=== PATIENT | female | born 1985 | race Caucasian/White ===

== ENCOUNTER 2016-12-28 11:07 | Observation (INO) | payer MEDICAID, OTHER ==
[2016-12-28] MEDS ORDERED: Haloperidol Lactate 5 MG/ML SDV IM ONE (12:16)
[2016-12-28] MEDS ORDERED: LORazepam 2 MG/ML MDV IM PRN (12:17)
[2016-12-28 12:48] LABS: ACETAMINOPHEN < 10 ug/mL (10-30)
--- NOTE | 2016-12-28 12:54 | EDM.PDOCBH ---
ED HPI GENERAL MEDICAL PROBLEM - General Chief Complaint: Drug or Alcohol Abuse Stated Complaint: 72 HOUR HOLD Time Seen by Provider: 12/28/16 11:07 Source of Information: Reports: Patient, Police History Limitations: Reports: No Limitations - History of Present Illness INITIAL COMMENTS - FREE TEXT/NARRATIVE: c/o paranoia and psychosis pt used meth and THC yesterday, walk to special police house at 7 AM and asked for a police uniform and police car sot hat she could go to [facility], went to a relative in [place] and asked for a car to go to [facility] which was declined, walked half a block and was under a vehicle and reported to be trying to get in , went back to relative who again declined to loan a car, then was found in the middle of [facility] at ~10:45 AM running around and saluting cars police brought her here, has been restless, pacing in and out of room, paranoid , took off a bandaid and wanted to stick it on staff and special police because "that is what she does with her children" has 3 children not working at least 7 previous psych admissions - Related Data Allergies Allergy/AdvReac Type Severity Reaction Status Date / Time Unable to Assess Allergy Unverified 12/28/16 12:01 Home Meds: Home Meds . [Unable to Verify Home Med List] 12/28/16 [History] ED ROS GENERAL - Review of Systems Review Of Systems: See Below Constitutional: Reports: No Symptoms HEENT: Reports: No Symptoms Respiratory: Reports: No Symptoms Cardiovascular: Reports: No Symptoms Endocrine: Reports: No Symptoms GI/Abdominal: Reports: No Symptoms : Reports: No Symptoms Musculoskeletal: Reports: No Symptoms Skin: Reports: No Symptoms Neurological: Reports: No Symptoms Psychiatric: Reports: Agitation, Anxiety Hematologic/Lymphatic: Reports: No Symptoms Immunologic: Reports: No Symptoms ED EXAM, BEHAVIORAL HEALTH - Physical Exam Exam: See Below Exam Limited By: Altered Mental Status General Appearance: Alert, Moderate Distress Eye Exam: Bilateral Eye: EOMI, PERRL Ears: Normal External Exam Nose: Normal Inspection, Normal Mucosa, No Blood Throat/Mouth: Normal Oropharynx, Normal Voice, No Airway Compromise, Other ( multiple missing teeth, poor dentition) Head: Atraumatic, Normocephalic Neck: Normal Inspection, Supple, Non-Tender, Full Range of Motion Respiratory/Chest: No Respiratory Distress, Lungs Clear, Normal Breath Sounds, No Accessory Muscle Use, Chest Non-Tender Cardiovascular: Regular Rate, Rhythm, No Edema, No Gallop, No Rub, Other (2/6 ABE at LSB) GI/Abdominal: Soft, Non-Tender Back Exam: Normal Inspection, Full Range of Motion, NT Extremities: Normal Inspection, Normal Range of Motion, Non-Tender, No Pedal Edema Neurological: Alert, CN II-XII Intact, No Motor/Sensory Deficits Psychiatric: Restless, Agitated, Flight of Ideas, Tangential Thoughts, Paranoid Thoughts, Other (restless, pacing, did lay on bed after Haldol, played with her hands, irrational thought content, unsafe, required police presence for 2 hours , tried to trash the room at one point and had to be restrained by police) Skin Exam: Warm, Dry, Intact, Normal color, No rash COURSE, BEHAVIORAL HEALTH COMP - Course Orders, Labs, Meds: Active Orders 24 hr Category Date Time Status CBC WITH AUTO DIFF [HEME] Stat Lab 12/28/16 11:31 Ordered DRUG SCREEN, URINE ALERE [URCHEM] Stat Lab 12/28/16 11:31 Uncollected TSH ULTRASENSITIVE [CHEM] Stat Lab 12/28/16 11:31 Ordered URINALYSIS W/MICROSCOPIC [UA W/MICROSCOPIC] [URIN] Stat Lab 12/28/16 11:35 Uncollected Laboratory Tests 12/28/16 12/28/16 Range/Units 11:50 11:50 Sodium 135 (135-145) mmol/L Potassium 3.9 (3.5-5.3) mmol/L Chloride 104 (100-110) mmol/L Carbon Dioxide 26 (23-29) mmol/L BUN 19 (5-20) mg/dL Creatinine 0.7 (0.6-1.3) mg/dL Est Cr Clr Drug Dosing TNP Estimated GFR (MDRD) > 60 (>60) BUN/Creatinine Ratio 27.1 H (9-20) Glucose 98 (80-116) mg/dL Calcium 9.3 (8.6-10.2) mg/dL Total Bilirubin 0.4 (0.1-1.3) mg/dL AST 18 (5-27) IU/L ALT 17 (14-26) IU/L Alkaline Phosphatase 73 (56-112) IU/L Total Protein 7.7 (6.0-8.0) g/dL Albumin 4.2 (3.5-5.2) g/dL Globulin 3.5 g/dL Albumin/Globulin Ratio 1.2 Salicylates < 4.0 L (5.0-25.0) mg/dL Acetaminophen < 10 L (10-30) ug/mL Ethyl Alcohol < 0.01 (<0.01) % Medications Discontinued Medications Generic Name Dose Route Start Last Admin Trade Name Freq PRN Reason Stop Dose Admin Haloperidol Lactate 5 mg 12/28/16 12:16 12/28/16 12:35 Haldol IM 12/28/16 12:17 5 mg ONETIME ONE Administration Lorazepam 1 mg 12/28/16 12:17 Ativan IM ONETIME PRN Agitation Lorazepam 2 mg 12/28/16 12:55 Ativan IM 12/28/16 12:56 ONETIME ONE Re-Assessment/Re-Exam: pt [place] two outstanding warrants ([place] & [place]), she was arrested for the [place] warrant several days ago and is now on probation call to multiple psych facilities, no beds available, pt not a safe d/c, has been given Haldol 5 mg IM, no Ativan given at this juncture will sign out to Dr José at 17:00 at change of shift Departure - Departure Time of Disposition: 19:00 Disposition: Still A Patient 30 Condition: Fair Clinical Impression: Acute psychosis, Paranoia, Methamphetamine abuse, Marijuana abuse - Discharge Information Referrals: PCP,Unknown [Ordering Only Provider] - Forms: ED Department Discharge - My Orders Last 24 Hours: My Active Orders 12/28/16 11:31 CBC WITH AUTO DIFF [HEME] Stat DRUG SCREEN, URINE ALERE [URCHEM] Stat TSH ULTRASENSITIVE [CHEM] Stat 12/28/16 11:35 URINALYSIS W/MICROSCOPIC [UA W/MICROSCOPIC] [URIN] Stat - Assessment/Plan Last 24 Hours: My Active Orders 12/28/16 11:31 CBC WITH AUTO DIFF [HEME] Stat DRUG SCREEN, URINE ALERE [URCHEM] Stat TSH ULTRASENSITIVE [CHEM] Stat 12/28/16 11:35 URINALYSIS W/MICROSCOPIC [UA W/MICROSCOPIC] [URIN] Stat
[2016-12-28] MEDS ORDERED: LORazepam 2 MG/ML MDV IM ONE (12:55)
[2016-12-28] MEDS ORDERED: LORazepam 2 MG/ML MDV IVPUSH PRN (20:17)
[2016-12-29] MEDS ORDERED: Haloperidol Lactate 5 MG/ML SDV IM ONE (01:35)
[2016-12-29] MEDS ORDERED: Haloperidol Lactate 5 MG/ML SDV IM PRN (07:45)
--- NOTE | 2016-12-29 07:55 | PCM.HP ---
H&P History of Present Illness - General Date of Service: 12/29/16 Admit Problem/Dx: Admission Diagnosis/Problem Admission Diagnosis/Problem Acute psychosis Source of Information: EMS Notes Reviewed, Family, Old Records History Limitations: Reports: Altered Mental Status, Uncooperative - History of Present Illness Initial Comments - Free Text/Narative: 31-year-old female brought in by law enforcement emergency room last night. She was apparently on the [address] [place] to hitch a ride. She was acting psychotic, disoriented and confused. The police I spoke with mentioned that she' s had these episodes in the last few weeks where neighbors, friends and family have called law enforcement concerned because of a acting confused and psychotic , which they believe is caused by drug abuse and or depression. She is apparently a methamphetamine user and also marijuana abuse. She denies alcohol use. She complains of no suicidal ideation or plan ;however she's had multiple visits to the emergency room for Psychosis. She has a h/o chronic migraine headaches, chronic neck pain that apparently stable. On average, she injects 2- 3 times a week. She is homeless, and jobless, according to family members. Unable to obtain further history because of her clinical status. - Related Data Allergies/Adverse Reactions: Allergies Allergy/AdvReac Type Severity Reaction Status Date / Time No Known Allergies Allergy Verified 12/28/16 19:47 Home Medications: Home Meds NK [No Known Home Meds] 12/28/16 [History] Past Medical History [employer] History: Reports: Psychiatric History: Reports: Addiction, Hallucinations, Psychosis, Suicidal Ideation - Infectious Disease History Infectious Disease History: Reports: Chicken Pox Social & Family History - Family History Family Medical History: Noncontributory - Tobacco Use Smoking Status *Q: Current Every Day Smoker Years of Tobacco use: 15 Packs/Tins Daily: 0.5 - Caffeine Use Caffeine Use: Reports: Soda - Recreational Drug Use Recreational Drug Use: Yes Drug Use in Last 12 Months: Yes Recreational Drug Type: Reports: Marijuana/Hashish, Methamphetamine Recreational Drug Use Frequency: Weekly H&P Review of Systems - Review of Systems: Review Of Systems: Unable To Obtain Exam - Exam Exam: See Below - Vital Signs Vital Signs: Last Vital Signs Temp 98 F 12/28/16 19:35 Pulse 69 12/29/16 04:55 Resp 16 12/29/16 04:55 BP 136/92 H 11/20/17 04:55 Pulse Ox 100 12/29/16 04:55 Weight: 58.649 kg - Exam General: Alert, Oriented, 4 HEENT: PERRLA, Hearing Intact, Mucosa Moist & [place], Nares Patent, Normal Nasal Septum, Posterior Pharynx Clear, Conjunctiva Clear, EOMI, EACs Clear, TMs Clear Neck: Supple, Trachea Midline, 2 Lungs: Clear to Auscultation, Normal Respiratory Effort Cardiovascular: Regular Rate, Regular Rhythm GI/Abdominal Exam: Normal Bowel Sounds, Soft, Non-Tender, No Organomegaly, No Distention, No Abnormal Bruit, No Mass, Pelvis Stable (Female) Exam: Deferred Rectal (Female) Exam: Deferred Back Exam: Normal Inspection, Full Range of Motion, NT Extremities: Normal Inspection, Normal Range of Motion, Non-Tender, No Pedal Edema, Normal Capillary Refill Skin: Warm, Dry, Intact Neurological: Cranial Nerves Intact, Reflexes Equal Bilateral Neuro Extensive - Mental Status: Oriented x3 Neuro Extensive - Motor, Sensory, Reflexes: CN II-XII Intact, Normal Gait, Normal Reflexes Psychiatric: Labile Mood, Agitated, Withdrawal Symptoms - Patient Data Result Diagrams: 12/28/16 11:50 *Q Meaningful Use (ADM) - VTE *Q VTE Criteria *Q: - Stroke *Q Stroke Criteria *Q: - AMI *Q AMI Criteria *Q: - Problem List (1) Drug-induced psychotic disorder SNOMED Code(s): 480010581 ICD Code: F19.959 - OTH PSYCHOACTV SUBSTANCE USE, UNSP W PSYCH DISORDER, UNSP Status: Acute Current Visit: Yes Qualifiers: Complication of substance-induced condition: with unspecified complication Qualified Code(s): F19.959 - Other psychoactive substance use, unspecified with psychoactive substance-induced psychotic disorder, unspecified (2) MDD (major depressive disorder) SNOMED Code(s): 985260051 ICD Code: F32.9 - MAJOR DEPRESSIVE DISORDER, SINGLE EPISODE, UNSPECIFIED Status: Acute Current Visit: Yes Qualifiers: Major depression recurrence: recurrent (3) Marijuana abuse SNOMED Code(s): 84037762 ICD Code: F12.10 - CANNABIS ABUSE, UNCOMPLICATED Status: Acute Current Visit: Yes (4) Methamphetamine abuse SNOMED Code(s): 822244071 ICD Code: F15.10 - OTHER STIMULANT ABUSE, UNCOMPLICATED Status: Acute Current Visit: Yes (5) Chronic neck pain SNOMED Code(s): 9176421517821 ICD Code: M54.2 - CERVICALGIA; G89.29 - OTHER CHRONIC PAIN Status: Acute Current Visit: Yes Problem List Initiated/Reviewed/Updated: Yes Orders Last 24hrs: Active Orders 24 hr Category Date Time Status Admission Status [Patient Status] [ADT] Routine ADT 12/28/16 19:23 Active Initiate Restraint Protocol [RC] DAILY Care 12/29/16 01:47 Active Oxygen Therapy [RC] .PRN Care 12/28/16 20:18 Active Up With Assistance [RC] ASDIRECTED Care 12/28/16 20:17 Active Vital Signs [RC] 00,04,08,12,16,20 Care 12/28/16 20:18 Active Regular Diet [DIET] Diet 12/29/16 Breakfast Active HCG QUALITATIVE,URINE [URCHEM] Routine Lab 12/29/16 07:46 Uncollected Haloperidol Lactate [Haldol] Med 12/29/16 07:45 Active 10 mg IM Q8H PRN LORazepam [Ativan] Med 12/28/16 20:17 Active 1 mg IVPUSH Q4H PRN Restraint Monitoring Non-VIOL/Non-SD [OM.PC] Daily Oth 12/29/16 02:00 Ordered Restraint Monitoring Non-VIOL/Non-SD [OM.PC] Daily Oth 12/30/16 02:00 Ordered Resuscitation Status Routine Resus Stat 12/28/16 20:17 Ordered Medication Orders Haloperidol Lactate (Haldol) 10 mg IM Q8H PRN PRN Reason: Agitation Lorazepam (Ativan) 1 mg IVPUSH Q4H PRN PRN Reason: Agitation Assessment/Plan Comment:: From the emergency room am told that the nurses tried to obtain placement in several places but were unsuccessful. She has some warrants but are pending and because of that she was unable to be placed at [facility] is full for psychiatric meds and most of other places were noted except in the surrounding areas. We'll admit her here use when necessary lorazepam or Haldol to control her behavior obtain a urine drug screen hCG, will supplant to called poison board to see how long this episode psychosomatic symptoms is expected to last.
--- NOTE | 2016-12-29 11:28 | CONS ---
DATE OF CONSULTATION: 12/29/2016 IDENTIFICATION: The patient is a 31-year-old female who is admitted to the [facility] in [place], [place] on December 28, 2016. She is seen for psychiatric evaluation. CHIEF COMPLAINT: "I am refusing to talk to you. You are just going to make fun of me." HISTORY OF PRESENT ILLNESS: The patient is a 31-year-old female who apparently has been in and out of fpc x9 episodes since August of 2016 and has an extensive history of methamphetamine and cannabis use. Evidently, the patient was exhibiting bizarre behaviors in the [place], [place] area yesterday evening and was brought to the emergency room for evaluation by the local police. ER staff did not feel that the patient was safe to be discharged and they were concerned that there were medical issues going on with the patient that was causing her bizarre behaviors and she was admitted to the inpatient MICU at [facility]. Since being on the unit, the patient has been displaying extreme mood liability and now she is evidently expressing suicidal ideation to staff and mother, and the patient is refusing to contract for safety and refusing to cooperate with staff. Evidently, the patient has a history of head banging and self injurious behaviors. She states that she wants to to staff and that it is her intent to get discharged from the hospital and to go on overdose. When attempting to the talk to the patient, the patient is refusing to talk to this provider stating "you are just going to make fun of me" and "the only way I will talk to you is if you say that I am able to be discharged." The patient is currently on a 72-hour hold. MEDICATIONS: At the time of presentation, none. ALLERGIES: No known drug allergies. PAST MEDICAL HISTORY: Rule out hypothermia. REVIEW OF SYSTEMS: Aside from immuno, all other major organ systems are negative at this point in time for acute difficulties or complications. FAMILY PSYCHIATRIC AND CD HISTORY: None reported. PAST PSYCHIATRIC AND CD HISTORY: The patient has a history of multiple psychiatric hospitalizations according to staff report, otherwise, the patient is refusing to provide any psychiatric or chemical dependency history. SOCIAL HISTORY: The patient is refusing to provide any social history. MENTAL STATUS EXAM: The patient is a 31-year-old white female in no apparent distress. Speech is of regular rate and rhythm. Unable to assess cognition as the patient is refusing to answer. Mood, the patient is also refusing to answer. Affect is angry and uncooperative. She is expressing suicidal ideation with a plan to overdose upon discharge. Not reporting any homicidal ideation, unable to assess for any tessa psychotic symptoms given the patient's lack of cooperation. Judgment and insight do appear impaired into the nature of her situation. Motivation for health is good. VITAL SIGNS: 139/85, 86, 20, 95.6 degrees. IMPRESSION: Woodruff I: 1. Depression, not otherwise specified, F32.9. 2. Rule out psychosis, not otherwise specified, F29. 3. Rule out bipolar affective disease, mixed type. 4. History of significant meth use and dependence. 5. History of significant cannabis use and dependence. Woodruff II: No diagnosis at this time. Woodruff III: Hypothermia per most recently taken temperature, although the patient does not appear to be hypothermic on presentation. Woodruff IV: Severe. Woodruff V: 50 to 55. PLAN: 1. Recommend rechecking the patient's reported temperature if she will cooperate. 2. The patient is medically cleared that she be transferred to inpatient psychiatry as she is expressing suicidal and her lack of cooperation makes her extreme danger to herself and possibly others, also given her belligerence on the unit. 3. If the patient becomes more combative on the unit, would recommend calling authorities and having her take in to the local fpc where she can be maintained safely until further psychiatric disposition can be determined and arranged. 4. We will continue to follow up on an as needed basis with this patient going forward as needed while she remains on the medical unit at [facility] in [place], [place]. 5. We will follow up with the patient's significant complications in the interim. 6. We would definitely recommend continuing the 72-hour hold on the patient and file a petition for commitment if need be going forward while a transfer is being arranged, although this later part of commitment papers can be handled by the accepting facility for the psychiatric transfer if that will make things easier for the transfer to be effected. 7. Crisis plan is in place. /[id number] DL/MODL
[2016-12-29] MEDS ORDERED: Nicotine 21 MG/24 Hr Patch TRDERM ONE (17:32)
--- NOTE | 2016-12-30 09:48 | PCM.PN ---
- General Info Date of Service: 12/30/16 Subjective Update: Patient slept well overnight. This morning she states that she would like to go. She has no interest in inpatient treatment for either mental health or chemical dependency. What family, and low enforcement concerned about her welfare given her behavior the last month. Mom especially is worried that she might harm himself or somebody else if she's discharged to the community without proper treatment Functional Status: Reports: Tolerating Diet - Review of Systems General: Reports: No Symptoms - Patient Data Vitals - Most Recent: Last Vital Signs Temp 96.4 F 12/30/16 08:00 Pulse 80 12/29/16 22:00 Resp 18 12/30/16 08:00 BP 138/90 12/29/16 22:00 Pulse Ox 99 12/30/16 08:00 Weight - Most Recent: 58.649 kg I&O - Last 24 Hours: Intake & Output 12/29/16 12/30/16 12/30/16 22:59 06:59 14:59 Intake Total 350 Balance 350 Med Orders - Current: Current Medications Haloperidol Lactate (Haldol) 10 mg IM Q8H PRN PRN Reason: Agitation Lorazepam (Ativan) 1 mg IVPUSH Q4H PRN PRN Reason: Agitation Discontinued Medications Haloperidol Lactate (Haldol) 5 mg IM ONETIME ONE Stop: 12/28/16 12:17 Last Admin: 12/28/16 12:35 Dose: 5 mg Haloperidol Lactate (Haldol) 5 mg IM ONETIME ONE Stop: 12/29/16 01:36 Last Admin: 12/29/16 01:44 Dose: 5 mg Lorazepam (Ativan) 1 mg IM ONETIME PRN PRN Reason: Agitation Lorazepam (Ativan) 2 mg IM ONETIME ONE Stop: 12/28/16 12:56 Last Admin: 12/28/16 13:00 Dose: Not Given Nicotine (Habitrol) 21 mg TRDERM ONETIME ONE Stop: 12/29/16 17:33 Last Admin: 12/29/16 19:20 Dose: Not Given - Exam General: Alert, Oriented HEENT: Pupils Equal, Pupils Reactive, EOMI, Mucous Membr. Moist/[place] Neck: Supple Lungs: Clear to Auscultation, Normal Respiratory Effort Skin: Warm, Dry, Intact Psy/Mental Status: Alert, Labile Mood. No: Suicidal Ideation, Homicidal Ideation, Hallucinations - Problem List & Annotations (1) Drug-induced psychotic disorder SNOMED Code(s): 092479942 Code(s): F19.959 - OTH PSYCHOACTV SUBSTANCE USE, UNSP W PSYCH DISORDER, UNSP Status: Acute Current Visit: Yes Qualifiers: Complication of substance-induced condition: with unspecified complication Qualified Code(s): F19.959 - Other psychoactive substance use, unspecified with psychoactive substance-induced psychotic disorder, unspecified (2) MDD (major depressive disorder) SNOMED Code(s): 006163914 Code(s): F32.9 - MAJOR DEPRESSIVE DISORDER, SINGLE EPISODE, UNSPECIFIED Status: Acute Current Visit: Yes Qualifiers: Major depression recurrence: recurrent (3) Marijuana abuse SNOMED Code(s): 06061868 Code(s): F12.10 - CANNABIS ABUSE, UNCOMPLICATED Status: Acute Current Visit: Yes (4) Methamphetamine abuse SNOMED Code(s): 958656353 Code(s): F15.10 - OTHER STIMULANT ABUSE, UNCOMPLICATED Status: Acute Current Visit: Yes (5) Chronic neck pain SNOMED Code(s): 6096344369701 Code(s): M54.2 - CERVICALGIA; G89.29 - OTHER CHRONIC PAIN Status: Acute Current Visit: Yes - Problem List Review Problem List Initiated/Reviewed/Updated: Yes - My Orders Last 24 Hours: My Active Orders 12/30/16 02:00 Restraint Monitoring Non-VIOL/Non-SD [OM.PC] Daily - Plan Plan:: Patient profoundly lacks insight. I feel that she is no alive to the fact that she has a problem both mentally and in chemical dependency. I'm working with the neonatal social worker, low enforcement and Dr. Field was appreciated to his consultation, to obtain commitment and treatment for before discharge
[2016-12-30] MEDS ORDERED: Nicotine 21 MG/24 Hr Patch TRDERM SCH (10:45)
[2016-12-30] MEDS ORDERED: LORazepam 1 MG Tab PO PRN (10:45)
--- NOTE | 2016-12-31 09:03 | PCM.PN ---
- General Info Date of Service: 12/31/16 Admission Dx/Problem (Free Text): Admission Diagnosis/Problem Admission Diagnosis/Problem Acute psychosis Subjective Update: Patient slept well overnight. This morning she is calm visibly,reasonable and answers questions well. She denies any suicidal or homicidal ideation. SHE FEELS READY NOT READY TO GO FOR ANY INPATIENT TREATMENT FOR DRUG ABUSE. - Patient Data Vitals - Most Recent: Last Vital Signs Temp 97.2 F 12/31/16 05:15 Pulse 80 12/31/16 05:15 Resp 16 12/31/16 05:15 BP 128/80 12/31/16 05:15 Pulse Ox 99 12/31/16 05:15 Weight - Most Recent: 58.649 kg Med Orders - Current: Current Medications Haloperidol Lactate (Haldol) 10 mg IM Q8H PRN PRN Reason: Agitation Lorazepam (Ativan) 1 mg IVPUSH Q4H PRN PRN Reason: Agitation Lorazepam (Ativan) 1 mg PO Q4H PRN PRN Reason: Anxiety Last Admin: 12/30/16 11:19 Dose: 1 mg Nicotine (Habitrol) 21 mg TRDERM DAILY JACKIE Last Admin: 12/30/16 11:18 Dose: 21 mg Discontinued Medications Haloperidol Lactate (Haldol) 5 mg IM ONETIME ONE Stop: 12/28/16 12:17 Last Admin: 12/28/16 12:35 Dose: 5 mg Haloperidol Lactate (Haldol) 5 mg IM ONETIME ONE Stop: 12/29/16 01:36 Last Admin: 12/29/16 01:44 Dose: 5 mg Lorazepam (Ativan) 1 mg IM ONETIME PRN PRN Reason: Agitation Lorazepam (Ativan) 2 mg IM ONETIME ONE Stop: 12/28/16 12:56 Last Admin: 12/28/16 13:00 Dose: Not Given Nicotine (Habitrol) 21 mg TRDERM ONETIME ONE Stop: 12/29/16 17:33 Last Admin: 12/29/16 19:20 Dose: Not Given - Exam General: Alert, Oriented, Cooperative, No Acute Distress Psy/Mental Status: Alert, Normal Affect, Normal Mood. No: Hallucinations, Withdrawal Symptoms - Problem List & Annotations (1) Drug-induced psychotic disorder SNOMED Code(s): 996347339 Code(s): F19.959 - OTH PSYCHOACTV SUBSTANCE USE, UNSP W PSYCH DISORDER, UNSP Status: Acute Current Visit: Yes Qualifiers: Complication of substance-induced condition: with unspecified complication Qualified Code(s): F19.959 - Other psychoactive substance use, unspecified with psychoactive substance-induced psychotic disorder, unspecified (2) MDD (major depressive disorder) SNOMED Code(s): 049579628 Code(s): F32.9 - MAJOR DEPRESSIVE DISORDER, SINGLE EPISODE, UNSPECIFIED Status: Acute Current Visit: Yes Qualifiers: Major depression recurrence: recurrent (3) Marijuana abuse SNOMED Code(s): 51149920 Code(s): F12.10 - CANNABIS ABUSE, UNCOMPLICATED Status: Acute Current Visit: Yes (4) Methamphetamine abuse SNOMED Code(s): 271739024 Code(s): F15.10 - OTHER STIMULANT ABUSE, UNCOMPLICATED Status: Acute Current Visit: Yes (5) Chronic neck pain SNOMED Code(s): 8371193438970 Code(s): M54.2 - CERVICALGIA; G89.29 - OTHER CHRONIC PAIN Status: Acute Current Visit: Yes - Problem List Review Problem List Initiated/Reviewed/Updated: Yes - My Orders Last 24 Hours: My Active Orders 12/30/16 10:45 LORazepam [Ativan] 1 mg PO Q4H PRN Nicotine [Habitrol] 21 mg TRDERM DAILY - Plan Plan:: Patient had a TELE health consultation with Dr. Field. I have spoke with him too.I have also examined her and find to be in no danger to herself or others at this time, suicidal and consolidations were convincingly denied. Both Dr. Field and I feel that we can discharge home from a psychiatric and medical point of view. She will need further follow-up for depression, and polysubstance abuse.
--- NOTE | 2016-12-31 10:39 | CONS ---
DATE OF CONSULTATION: 12/31/2016 HISTORY OF PRESENT ILLNESS: The patient is a 31-year-old female who is admitted to the inpatient medical unit at [facility] in [place], [place] on Wednesday, December 28, 2016. She is seen for psychiatric followup evaluation this morning. She was unable to converse meaningfully at her initial psychiatric assessment and subsequently refused the majority of the consultation. This morning, she is stating that the reason she was admitted is "I was trying to get to [place] on Thursday," and evidently the patient was not allowed to [place] and she got into some argument, and the authorities ended up bringing her to the emergency room. She states that she is "frustrated because people misrepresent themselves." She states that she has a history of using meth and marijuana "pretty much when I can get it," but she states that she does not use this often as she used to in the past because "I just do not really have any money to use it, but it is not really a problem for me." She states her longest sobriety was for about 2-1/2 to 3 years "a while back." Today she states that she is doing quite well. She denies that she is suicidal or homicidal. She denies having any suicidal plans ever. She denies any previous suicide attempts and she denies that she is psychotic, delusional or paranoid. She states her mood again is frustrated, but overall she feels that she is doing well and she would like to get discharged from the hospital because "I have a lot lined up and I got to get ready for Thanksgiving. Also, I have 3 kids and they are with my mom and I am trying to get them back." She states she also has to clean up her house and start looking for a job. At this point in time, the patient is denying any depression or anxiety and is stating "I would just let my clothes back if possible." MENTAL STATUS EXAM: The patient is a 31-year-old white female in no apparent distress. Speech is regular rate and rhythm. The patient is cognitively oriented. Psychomotor activity is within normal limits. There are no abnormal motor movements or tics. Her gait is steady. Station is normal. Mood is "frustrated." Affect is cooperative overall for the purposes of the inpatient psychiatric consult. There is no behavioral or stated evidence of acute suicidal or homicidal ideation or acute psychotic, delusional, or paranoid symptoms. Thought processes are organized. There are no manic symptoms or loose associations evident. Judgment and insight into the likely severity of her chemical addictions are poor. Motivation for help is fair to poor. VITAL SIGNS: 128/80, 86, 16, 97.2. IMPRESSION: [place] I: 1. Depression, not otherwise specified, F32.9. 2. Meth dependence. 3. Cannabis dependence. [place] II: None. [place] III: No known active problems. [place] IV: Severe. [place] V: 60. PLAN: 1. Sobriety. 2. Recommend that if the patient is unable to maintain sobriety on her own that she seek out services such as AA or NA or outpatient or inpatient chemical dependency services to help her with obtaining sobriety from her addictions and also to improve her quality of life. 3. The patient appears to be stable from a psychiatric standpoint and not be a danger to herself or others. 4. Recommend that when the patient is medically stabilized that she is able at this point to be discharged back to the community from a psychiatric standpoint as she does not appear to be a danger to herself or others and chemical dependency issues appear to be at the forefront of her clinical and ongoing clinical presentation. 5. Recommend that inpatient treatment staff clear the patient's legal status with the county where the house was located as well as the authorities to make sure that there is no legal processes in place for the patient's civil commitment at this point in time as they work to a disposition plan. 6. We will continue to follow up with the patient on an as needed basis for outpatient management and inpatient medical unit at [facility] in [place], [place]. 7. We will follow up with the patient sooner if any complications in the interim. 8. Crisis plan is in place. /[id number] ELEANOR/GURU
--- NOTE | 2016-12-31 10:55 | DISCH ---
DISCHARGE DATE: 12/31/2016 REASON FOR ADMISSION: Psychosis. DISCHARGE DIAGNOSES: 1. Polysubstance abuse. 2. Drug-induced psychosis. 3. Major depression. 4. Chronic neck pain. 5. Marijuana and meth use. CONSULTATION: 1. Dr. Field, Telehealth. 2. [facility] social services counselor. BRIEF HISTORY: This is a 31-year-old female who was brought into the ER [place] the [place] by law enforcement. She was intoxicated and disoriented. She was agitated and was not making sense. Both the family and law enforcement were concerned about her welfare. We could not find a psychiatric hospital for admission; therefore, we admitted in our ICU for observation and to treat her withdrawal symptoms from meth and marijuana. She was given Haldol to control her symptoms and lorazepam p.r.n. We consulted Dr. Field, who examined her. We also consulted the county because the mother was interested in filing for civil commitment. Multiple efforts were made to transfer to a psychiatric hospital with no success in and around the state and without. In the last 24 hours, agitation and anxiety significantly improved. She was cooperative, medically stable in terms of vital signs, and after consultation this morning of 12/[address] Field, he felt that she was safe to go home and to be released to the community from a psychiatric standpoint. I agreed with him. As such, she was released, discharged home for a followup with her PCP and Psychiatry as an outpatient. More than 35 minutes was used in discharge of the patient and she was not discharged on any medications. /[id number] HARDIK/GURU
== END 2016-12-31 09:30 | disposition home or self-care (01) ==
LOC: FB.ED 11:07 → FB.ICU 19:14
PROVIDERS: ADMIT Family Medicine; ATTEND Family Medicine
DX: F19.159 Other psychoactive substance abuse with psychoactive substance-induced psychotic disorder, unspecified (principal); F32.9 Major depressive disorder, single episode, unspecified; G89.29 Other chronic pain; M54.2 Cervicalgia; F12.10 Cannabis abuse, uncomplicated; F15.10 Other stimulant abuse, uncomplicated; F17.210 Nicotine dependence, cigarettes, uncomplicated
CPT/HCPCS: 36415; 80053; 80305; 81001; 81025; 96372; 99285; A9270; G0425; G0480; J1630; G0378

== ENCOUNTER 2023-11-28 20:09 | Emergency (ER) | payer MEDICAID, OTHER ==
[2023-11-28 20:48] LABS: BASOPHILS PERCENT AUTO 0.4 % (0.2-1.5); EOSINOPHILS ABSOLUTE AUTO 0.1 x10-3/uL (0.0-0.8); HEMATOCRIT 40.1 % (34.2-48.2); HEMOGLOBIN 13.4 g/dL (11.4-15.5); LYMPHOCYTES ABSOLUTE AUTO 1.7 x10-3/uL (1.0-4.4); LYMPHOCYTES PERCENT AUTO 16.4 % (18.4-52.1); MEAN CORPUSCULAR HEMOGLOBIN 30.6 pg (23.9-33.9); MEAN CORPUSCULAR HGB CONC 33.3 g/dL (31.9-34.8); MEAN CORPUSCULAR VOLUME 91.8 fL (76.7-100.5); MEAN PLATELET VOLUME 8.1 fL (7.1-12.4); MONOCYTES ABSOLUTE AUTO 0.7 x10-3/uL (0.3-1.0); MONOCYTES PERCENT AUTO 7.1 % (4.4-15.7); NEUTROPHILS ABSOLUTE AUTO 7.9 x10-3/uL (1.5-6.3); NEUTROPHILS PERCENT AUTO 75.1 % (30.8-76.2); PLATELET COUNT,PLT 307 x10(3)uL (151-488); RED BLOOD CELL COUNT 4.37 x10(6)uL (3.60-5.20); RED CELL DISTRIBUTION WIDTH 13.5 % (12.3-16.5); WHITE BLOOD CELL COUNT,WBC 10.5 x10-3/uL (3.0-10.3)
[2023-11-28 20:52] LABS: BLOOD UREA NITROGEN,BUN 18 mg/dL (7-18); CALCIUM 9.3 mg/dL (8.6-10.2); CARBON DIOXIDE,CO2 24 mmol/L (21-32); CHLORIDE,CL 107 mmol/L (100-110); ESTIMATED GFR 73 mL/min (>60); GLUCOSE RANDOM 91 mg/dL (80-116); POTASSIUM,K 3.7 mmol/L (3.5-5.3); SODIUM,NA 145 mmol/L (135-145)
[2023-11-28 20:56] LABS: SALICYLATE 2.2 mg/dL (<2.8)
[2023-11-28 20:57] LABS: ACETAMINOPHEN < 2 ug/mL (<2)
[2023-11-28 20:59] LABS: AMPHETAMINES SCREEN, URINE POSITIVE (NEGATIVE); BARBITURATE SCREEN,URINE NEGATIVE (NEGATIVE); BENZODIAZEPINES SCREEN,URINE NEGATIVE (NEGATIVE); METHADONE SCREEN, URINE NEGATIVE (NEGATIVE); METHAMPHETAMINE SCREEN, URINE POSITIVE (NEGATIVE); OXYCODONE SCREEN,URINE NEGATIVE (NEGATIVE); THC SCREEN,URINE POSITIVE (NEGATIVE)
[2023-11-28 21:00] LABS: BUPRENORPHINE SCREEN,URINE NEGATIVE (NEGATIVE)
[2023-11-28] MEDS: OLANZapine 10 MG Vial IM ONE (21:56)
== END 2023-11-28 22:09 ==
LOC: FB.ED 20:09
DX: F15.10 Other stimulant abuse, uncomplicated (principal); F23 Brief psychotic disorder; F17.210 Nicotine dependence, cigarettes, uncomplicated
CPT/HCPCS: 36415; 80048; 80143; 80179; 80307; 85025; 96372; 99283; J2405